=== PATIENT | male | born 1965 | race Hispanic/Latino ===

== ENCOUNTER 2023-12-26 19:34 | Emergency (ER) | payer OTHER ==
[~2023-12-26] VITALS: Ht 182.9 cm; Wt 93.0 kg
[2023-12-26] MEDS ORDERED: HYDRALAZINE HCL 20 MG/ML VIAL IV STA (21:12)
[2023-12-26 21:57] LABS: BASOPHILS % 0.3 % (0.0-1.0); EOSINOPHILS # (AUTO) 0.1 (0.0-0.4); HEMATOCRIT 47.2 % (38.2-49.6); HEMOGLOBIN 15.7 g/dL (14.0-18.0); LYMPHOCYTES % 42.6 % (18.0-39.1); MEAN CORPUSCULAR HEMOGLOBIN 29.5 pg (28-32); MEAN CORPUSCULAR HGB CONC 33.3 g/dL (31-35); MEAN CORPUSCULAR VOLUME 88.6 fL (81-99); MONOCYTES # (AUTO) 0.4 (0.2-0.8); NEUTROPHILS # (AUTO) 3.6 (2.1-6.9); NEUTROPHILS % 50.8 % (38.7-80.0); PLATELET COUNT 234 x10e3/uL (140-360); RED BLOOD COUNT 5.33 x10e6/uL (4.3-5.7); RED CELL DISTRIBUTION WIDTH 13.3 % (11.7-14.4); WHITE BLOOD COUNT 7.13 x10e3/uL (4.8-10.8)
[2023-12-26 22:12] LABS: ALBUMIN 4.6 g/dL (3.5-5.0); ALBUMIN/GLOBULIN RATIO 1.4 (0.8-2.0); ANION GAP 10.4 mmol/L (8-16); BILIRUBIN,TOTAL 0.8 mg/dL (0.2-1.2); CALCIUM 9.6 mg/dL (8.4-10.2); CREATININE, SERUM 1.26 mg/dL (0.72-1.25); POTASSIUM 4.4 mmol/L (3.5-5.1)
[2023-12-26 22:30] VITALS: O2SAT 100
[2023-12-26] MEDS ORDERED: ZESTORETIC 10-1 EAC1 PO (23:10)
[2023-12-26 23:28] VITALS: BP 149/80
== END 2023-12-26 23:20 | disposition home or self-care (01) ==
LOC: ER 19:38
DX: R50.9 Fever, unspecified (principal); I16.0 Hypertensive urgency
CPT/HCPCS: 36415; 71045; 80053; 83880; 84484; 85025; 99284; J0360; 93005